=== PATIENT | female | born 1930 | race Caucasian/White ===

== ENCOUNTER 2018-03-06 05:32 | Emergency (ER) | payer MEDICARE, OTHER ==
[~2018-03-06] VITALS: Ht 162.6 cm; Wt 64.4 kg
[~2018-03-06 05:32] MED LIST: NORCO 5-325 TA1 EACH PO
[2018-03-06] MEDS ORDERED: NAPROXEN375 MG PO (05:52)
[2018-03-06] MEDS ORDERED: MELOXICAM15 MG PO (06:46)
[2018-03-06] MEDS ORDERED: ULTRA-LIGHT RO1 EACH MISC (06:47)
== END 2018-03-06 07:24 | disposition home or self-care (01) ==
LOC: ED 05:32
DX: M16.11 Unilateral primary osteoarthritis, right hip (principal)
CPT/HCPCS: 73502; 96372; 99283; J1885